=== PATIENT | female | born 1975 | race Two or more races ===

== ENCOUNTER 2019-09-05 19:35 | Emergency (ER) | payer SELFPAY ==
[~2019-09-05] VITALS: Ht 162.6 cm; Wt 74.5 kg
[2019-09-05] MEDS ORDERED: METH-38 PO (20:47)
[2019-09-05] MEDS ORDERED: TRAM50TA PO (20:47)
--- NOTE | 2019-09-05 20:48 | PHYS DOC ---
Past Medical History Past Medical History: Diabetes-Type II Past Surgical History: No Surgical History Smoking Status: Never Smoker Alcohol Use: None General Adult EDM: Chief Complaint: GENERALIZED BODY ACHES HPI: HPI: Patient is a 44 year old female who presents with complaints of generalized body aches and pains for several years. Patient states that her pain was rated a 10 out of 10 earlier today, but took 400 mg of ibuprofen and had pain relief. Patient states that she has a long history of arthritis and generalized body aches and would like some pain medicine for home. Patient denies any recent fever or chills, visual changes, nasal congestion, cough, shortness of breath, chest pain, or swelling of her extremities. Patient also denies abdominal pain, nausea, vomiting, diarrhea, constipation, or blood in her stools. Patient denies any problems urinating, vaginal discharge, or STI concerns. Patient does complain of generalized back pain but denies pain in her spine and other pain in her joints. Patient denies any rashes of her skin, headaches, focal weaknesses, or sensory changes. Patient denies any recent increase of urination or thirst at home. She denies any swelling of her glands, depressions, anxieties, recent life changes, suicidal or homicidal ideations. Patient denies concerns for or exposure to COVID-19 virus. Review of Systems: Review of Systems: Constitutional: Denies fever or chills. Eyes: Denies change in visual acuity. HENT: Denies nasal congestion or sore throat. Respiratory: Denies cough or shortness of breath. Cardiovascular: Denies chest pain or edema. GI: Denies abdominal pain, nausea, vomiting, bloody stools or diarrhea. : Denies dysuria. Patient denies vaginal discharge, or STI concerns. Musculoskeletal: Patient reports generalized body aches and pains related to her long history of arthritis and what she calls her myalgias. Integument: Denies rash. Neurologic: Denies headache, focal weakness or sensory changes. Endocrine: Denies polyuria or polydipsia. Lymphatic: Denies swollen glands. Psychiatric: Denies depression or anxiety. Patient denies homicidal or suicidal ideation. Heart Score: Risk Factors: Risk Factors: DM, Current or recent (<one month) smoker, HTN, HLP, family history of CAD, obesity. Risk Scores: Score 0 - 3: 2.5% MACE over next 6 weeks - Discharge Home Score 4 - 6: 20.3% MACE over next 6 weeks - Admit for Clinical Observation Score 7 - 10: 72.7% MACE over next 6 weeks - Early Invasive Strategies Family History: Family History: Patient states she does not know her family history as her parents when she was very young. Current Medications: Patient states she is not on any current meds at home. Allergies: Allergies: Allergies Coded Allergies Type Severity Reaction Last Updated Verified No Known Drug Allergies 09/05/19 No Physical Exam: PE: Constitutional: Well developed, well nourished, no acute distress, non-toxic appearance. HENT: Normocephalic, atraumatic, bilateral external ears normal, oropharynx moist, no oral exudates, nose normal. Eyes: PERRLA, EOMI, conjunctiva normal, no discharge. 4 mm. Neck: Normal range of motion, no tenderness, supple, no stridor. Cardiovascular:Heart rate regular rhythm, no murmur heart sounds S1-S2, no abn ormalities per auscultation. Lungs & Thorax: Bilateral breath sounds clear to auscultation all lung joaquin. Abdomen: Bowel sounds normal all 4 quadrants, soft, no tenderness, no masses, no pulsatile masses. Skin: Warm, dry, no erythema, no rash. Back: No tenderness, no CVA tenderness. Extremities: No tenderness, no cyanosis, no clubbing, ROM intact, no edema. Neurologic: Alert and oriented X 3, normal motor function, normal sensory function, no focal deficits noted. Psychologic: Affect normal, judgement normal, mood normal. Current Patient Data: Vital Signs: Vital Signs Date Time Temp Pulse Resp B/P (MAP) Pulse Ox O2 Delivery O2 Flow Rate FiO2 09/05/19 19:50 98.4 110 18 124/69 (87) 98 Room Air 98.4 EKG: EKG: [] Radiology/Procedures: Radiology/Procedures: [] Course & Med Decision Making: Course & Med Decision Making Pertinent Labs and Imaging studies reviewed. (See chart for details) 44-year-old patient arrived to emergency department complaining of generalized body aches. Patient's significant other told nursing staff that she also has shortness of breath and chills, however the patient denies this. Patient states that she has a long history of myalgias and arthritis is that she needs to get a prescription for pain medicine at home for. Patient denies any concerns for COVID-19. Patient's physical examination was negative for acute findings or acute infectious process. Discussed with patient that she would need to follow- up with a personal care physician for long-term myalgia and arthritis medication/pain care. Patient gave verbal understanding of this. Discussed with patient return to ER precautions and concerns. Also discussed with patient prescriptions for tramadol and Robaxin. Patient gave verbal understanding of discharge home instructions and prescription medications, patient had no further questions or concerns. Patient discharged home with significant other. Dragon Disclaimer: Edicy Disclaimer: This electronic medical record was generated, in whole or in part, using a voice recognition dictation system. Departure Departure Impression: Primary Impression: Myalgia Disposition: , SELF-CARE Condition: GOOD Referrals: NO PCP (PCP) Patient Instructions: Myalgia, Adult Additional Instructions: Take home medications as prescribed, follow-up with your personal physician soon, return to the emergency department for worsening symptoms, or further concerns. Scripts Methocarbamol (ROBAXIN-750) 750 Mg Tablet 750 MG PO PRN BID, #20 TAB 0 Refills Prov: FRANCISCA LANDAVERDE APRN 09/05/19 Tramadol Hcl (TRAMADOL HCL) 50 Mg Tablet 50 MG PO Q6HRS PRN for PAIN, #20 TAB 0 Refills Prov: FRANCISCA LANDAVERDE APRN 09/05/19 Justicifation of Admission Dx: Justifications for Admission: Justification of Admission Dx: N/A FRANCISCA LANDAVERDE APRN Sep 05, 2019 20:48
[2019-09-05 21:10] VITALS: BP 119/69
== END 2019-09-05 21:10 | disposition home or self-care (01) ==
LOC: ER 19:35
DX: M79.10 Myalgia, unspecified site (principal); M19.90 Unspecified osteoarthritis, unspecified site; E11.9 Type 2 diabetes mellitus without complications
CPT/HCPCS: 99283